=== PATIENT | female | born 1965 | race Caucasian/White ===

== ENCOUNTER 2020-06-02 06:49 | Day surgery (SDC) | payer BC ==
[~2020-06-02] VITALS: Ht 162.6 cm; Wt 58.3 kg
[2020-06-02] VITALS (15 sets, daily range): BP systolic 87–130; BP diastolic 60–79
[2020-06-02] MEDS ORDERED: normal saline 1000ml 1,000 ML IV PRN (07:10)
[2020-06-02 07:26] LABS: BASOPHILS # (AUTO) 0.1 X10'3 (0-0.2); BASOPHILS % (AUTO) 0.9 % (0-1); EOSINOPHILS # (AUTO) 0.1 X10'3 (0-0.9); EOSINOPHILS % (AUTO) 0.9 % (0-6); HEMATOCRIT 41.4 % (35.0-45.0); LYMPHOCYTES # (AUTO) 1.2 X10'3 (1.1-4.8); LYMPHOCYTES % (AUTO) 20.9 % (21-51); MEAN CORPUSCULAR HEMOGLOBIN 31.2 PG (27.0-31.0); MEAN CORPUSCULAR HGB CONC 33.8 g/dL (33.0-36.5); MEAN CORPUSCULAR VOLUME 92.3 FL (78-98); MEAN PLATELET VOLUME 8.7 FL (7.4-10.4); MONOCYTES # (AUTO) 0.6 X10'3 (0-0.9); MONOCYTES % (AUTO) 9.5 % (2-12); NEUTROPHILS # (AUTO) 4.1 X10'3 (1.8-7.7); NEUTROPHILS % (AUTO) 67.8 % (42-75); PLATELET COUNT 353 X10'3 (140-440); RED BLOOD COUNT 4.48 X10'6 (4.20-5.60); RED CELL DISTRIBUTION WIDTH 13.3 % (11.5-14.5)
[2020-06-02] MEDS ORDERED: MULT-1085 PO (07:42)
[2020-06-02] MEDS ORDERED: PRAV40TA3 PO (07:42)
[2020-06-02] MEDS ORDERED: OMEG-79 PO (07:42)
[2020-06-02] MEDS ORDERED: LEVO-98 PO (07:42)
[2020-06-02] MEDS ORDERED: ASCO-139 PO (07:42)
[2020-06-02] MEDS ORDERED: fentaNYL/PF 50MCG/1 ML 2ML syringe ONE (09:18)
[2020-06-02] MEDS ORDERED: midazolam 1 mg/ML 2ml injection ONE (09:18)
[2020-06-02] MEDS ORDERED: ondansetron/PF 4mg/2ml inj ONE (09:20)
[2020-06-02] MEDS ORDERED: HYDROcodone/acetaminophen 5mg/325mg tablet PO PRN ×2 (10:25)
[2020-06-02] MEDS ORDERED: normal saline 1000ml 1,000 ML IV SCH (10:25)
== END 2020-06-02 12:34 | disposition home or self-care (01) ==
LOC: SSTAY O 06:49
PROVIDERS: ATTEND Radiology Vascular & Interventional Radiology
DX: K76.89 Other specified diseases of liver (principal); C78.7 Secondary malignant neoplasm of liver and intrahepatic bile duct; C53.9 Malignant neoplasm of cervix uteri, unspecified; E03.9 Hypothyroidism, unspecified; Z98.890 Other specified postprocedural states; Z79.899 Other long term (current) drug therapy
CPT/HCPCS: 36415; 47000; 77012; 85025; 99152; 99153; J2250; J2405; J3010

== ENCOUNTER 2021-11-16 11:00 | Day surgery (SDC) | payer BC ==
[~2021-11-16] VITALS: Ht 160 cm; Wt 58.8 kg
[~2021-11-16 11:00] MED LIST: ASCO-139 PO; LEVO-98 PO; MULT-1085 PO; OMEG-79 PO; PRAV40TA3 PO
[2021-11-16 11:20] VITALS: BP 123/77
[2021-11-16] MEDS ORDERED: normal saline 1000ml 1,000 ML IV PRN (11:25)
[2021-11-16] MEDS ORDERED: TURM500T PO (11:29)
[2021-11-16] MEDS ORDERED: ALPR1TAB2 PO (11:29)
[2021-11-16] MEDS ORDERED: ERGO50CA PO (11:29)
[2021-11-16] MEDS ORDERED: LEVO50TA PO (11:29)
[2021-11-16] MEDS ORDERED: LIDOcaine 1%/PF 5ML 10 MG/ML VIAL ONE (11:57)
[2021-11-16] MEDS ORDERED: heparin sodium, porcine/PF 100unit/ml 5ML syringe ONE (11:57)
[2021-11-16] MEDS ORDERED: midazolam 1 mg/ML 2ml injection ONE ×2 (11:58→12:32)
[2021-11-16] MEDS ORDERED: fentaNYL/PF 50MCG/1 ML 2ML syringe ONE (11:58)
[2021-11-16 13:00] VITALS: BP 126/73
[2021-11-16 13:15] VITALS: BP 123/76
[2021-11-16 13:30] VITALS: BP 121/77
== END 2021-11-16 13:30 | disposition home or self-care (01) ==
LOC: SSTAY O 11:00
PROVIDERS: ATTEND Radiology Vascular & Interventional Radiology
DX: C57.00 Malignant neoplasm of unspecified fallopian tube (principal); Z79.899 Other long term (current) drug therapy; Z98.890 Other specified postprocedural states
CPT/HCPCS: 36561; 76937; 77001; 87811; 99152; 99153; C1769; C1788; C1894; J1642; J2250; J3010; J3490; J7030